=== PATIENT | female | born 2000 | race Caucasian/White ===

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

== ENCOUNTER 2018-01-25 04:37 | Inpatient (IN) | payer OTHER ==
[2018-01-25 06:05] LABS: HEMATOCRIT 36.3 % (36.0-47.0); HEMOGLOBIN 12.3 g/dl (12.0-15.5); MEAN CORPUSCULAR HEMOGLOBIN 28.8 pg (27.0-33.0); MEAN CORPUSCULAR HGB CONC 33.9 g/dl (32.0-36.5); PLATELET COUNT, AUTOMATED 228 10^3/uL (150-450); RED BLOOD COUNT 4.27 10^6/uL (4.00-5.40); WHITE BLOOD COUNT 16.4 10^3/uL (4.0-10.0)
[2018-01-25] MEDS: PENICILLIN G POTASSIUM IV 5 MU in D5W MINI-BAG PLUS 100 ML IV (06:36)
[2018-01-25] MEDS ORDERED: FENTANYL 2MCG/ML ROPIVACAINE 0.2% IN 0.9% NACL 200ML IVBAG As Ordered (08:05)
[2018-01-25] MEDS ORDERED: NALOXONE INJ 0.4 MG/1 ML VIAL (J2310) IV (10:15)
[2018-01-25] MEDS ORDERED: EPIDURAL COMMENT XX (10:15)
[2018-01-25] MEDS ORDERED: REFRIGERATOR IV KEYS XX (10:15)
[2018-01-25] MEDS ORDERED: ePHEDrine SULFATE 25 MG/5 ML(5MG/ML) SYRINGE IV (10:15)
[2018-01-25] MEDS ORDERED: LACTATED RINGER'S 1000 ML IV (10:15)
[2018-01-25] MEDS: FENTANYL/ROPIVACAINE/NACL BAG 200 ML EPIDURAL (10:15)
[2018-01-25] MEDS ORDERED: ONDANSETRON 4MG/2ML VIAL (J2405) IV ×2 (10:15→22:30)
[2018-01-25] MEDS ORDERED: EPIDURAL/PCA KEYS XX (10:15)
[2018-01-25] MEDS ORDERED: diphenhydrAMINE INJ 50MG/ML VIAL (J1200) IV (10:15)
[2018-01-25] MEDS: PENICILLIN G POTASSIUM IV 2.5 MU in APPROPRIATE DILUENT 1 EA IV ×3 (10:18→18:35)
[2018-01-25] MEDS: OXYTOCIN DRIP 30 UNITS in APPROPRIATE DILUENT 1 EA IV (12:03)
[2018-01-25] MEDS ORDERED: ACETAMINOPHEN 500 MG TAB PO (22:30)
[2018-01-25] MEDS ORDERED: DOCUSATE SODIUM 100 MG CAP PO (22:30)
[2018-01-25] MEDS ORDERED: IBUPROFEN 800 MG TAB PO (22:30)
[2018-01-25] MEDS ORDERED: METHYLERGONOVINE MALEATE 0.2 MG TAB PO (22:30)
[2018-01-25] MEDS ORDERED: DIBUCAINE 1% OINTMENT 30GM TOP (22:30)
[2018-01-26] MEDS: OXYTOCIN DRIP 30 UNITS in APPROPRIATE DILUENT 1 EA IV (00:53)
[2018-01-26] MEDS: PRENATAL VITAMINS CHEWABLE TABLET PO (08:44)
[2018-01-26] MEDS: MEASLES,MUMPS,RUBELLA VACCINE INJ (MMR-II) (90707) SC (11:17)
[2018-01-26] MEDS: RHOGAM 300 MCG (1500 IU) INJ (J2790) IM (11:17)
== END 2018-01-27 09:55 | disposition home or self-care (01) | DRG 560 ==
LOC: M LDO 04:37 → M OBS 01-26 01:05 → M LDI 05:26
PROVIDERS: Specialist
PROC: 10E0XZZ Delivery of Products of Conception, External Approach (ICD-10-PCS; principal; 2018-01-25)
PROC: 0HQ9XZZ Repair Perineum Skin, External Approach (ICD-10-PCS; 2018-01-25)
DX: O99.824 Streptococcus B carrier state complicating childbirth (principal); F17.210 Nicotine dependence, cigarettes, uncomplicated; Z3A.39 39 weeks gestation of pregnancy; Z37.0 Single live birth; O70.0 First degree perineal laceration during delivery; O99.334 Smoking (tobacco) complicating childbirth

== ENCOUNTER 2018-01-30 21:06 | Emergency (ER) | payer OTHER | END 2018-01-30 22:37 | disposition home or self-care (01) | LOC: M ED 21:06 | DX: Z11.3 Encounter for screening for infections with a predominantly sexual mode of transmission (principal); F17.210 Nicotine dependence, cigarettes, uncomplicated | CPT/HCPCS: 86694 ==

== ENCOUNTER 2018-02-19 19:45 | Emergency (ER) | payer OTHER ==
[2018-02-19 20:12] LABS: KETONE, URINE AUTO RFX NEGATIVE (NEGATIVE); LEUKOCYTE ESTERASE UR AUTO RFX TRACE (NEGATIVE); MUCUS, URINE RFX SMALL (NEGATIVE); NITRITE, URINE AUTO RFX NEGATIVE (NEGATIVE); RBC, URINE AUTO RFX 3 /HPF (0-3); SPECIFIC GRAVITY UR AUTO RFX 1.023 (1.002-1.035); SQUAM EPITHELIAL CELL UR AURFX 2 /HPF (0-6); WBC, URINE AUTO RFX 1 /HPF (0-3)
== END 2018-02-19 22:51 | disposition home or self-care (01) ==
LOC: M ED 19:45
DX: O90.89 Other complications of the puerperium, not elsewhere classified (principal); R10.2 Pelvic and perineal pain; Z87.440 Personal history of urinary (tract) infections; O99.335 Smoking (tobacco) complicating the puerperium; F17.210 Nicotine dependence, cigarettes, uncomplicated
CPT/HCPCS: 76856

== ENCOUNTER 2018-04-30 20:23 | Emergency (ER) | payer OTHER, SELFPAY ==
[2018-04-30] MEDS: AUGMENTIN 875 MG TAB PO ×2 (21:15)
== END 2018-04-30 21:34 | disposition home or self-care (01) ==
LOC: M ED 20:23
DX: H65.02 Acute serous otitis media, left ear (principal); B34.9 Viral infection, unspecified; F33.9 Major depressive disorder, recurrent, unspecified
CPT/HCPCS: 87880

== ENCOUNTER 2018-07-07 18:03 | Emergency (ER) | payer OTHER, SELFPAY ==
[~2018-07-07] VITALS: Ht 154.9 cm; Wt 79.5 kg
[~2018-07-07 18:03] MED LIST: AUGM875T28 PO; BENA25TA10 PO; CLEO300C2 PO; COLA100C5 PO; E-ZMIS3 XX; GUAI100S27 PO; HYDR1CRE2 EXT; IBUP-1114 PO; MAPA500T17 PO; PERC5TAB12 PO; PREN1TAB11 PO; PROAAER10 INH
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
[2018-07-07] MEDS ORDERED: traMADol 50 MG TAB PO ONE (19:15)
[2018-07-07] MEDS ORDERED: TETANUS/DIPHTHERIA TOX ADSORB ADULT 0.5ML SYR/VIAL (90714) IM ONE (19:15)
[2018-07-07 19:48] VITALS: BP 124/68
== END 2018-07-07 19:49 | disposition home or self-care (01) ==
LOC: EDBD 18:03 → M ED 18:03
DX: S80.02XA Contusion of left knee, initial encounter (principal); S80.212A Abrasion, left knee, initial encounter; W00.0XXA Fall on same level due to ice and snow, initial encounter; Y92.410 Unspecified street and highway as the place of occurrence of the external cause; F17.200 Nicotine dependence, unspecified, uncomplicated

== ENCOUNTER 2019-02-09 16:47 | Emergency (ER) | payer MEDICAID, SELFPAY ==
[~2019-02-09] VITALS: Ht 154.9 cm; Wt 84.5 kg
[~2019-02-09 16:47] MED LIST changes: +GUAI100L6 PO; -GUAI100S27 PO; -MAPA500T17 PO; +MAPA500T2 PO
[2019-02-09 17:48] LABS: BASO % 0.2 % (0.0-1.0); EOS % 0.3 % (0.0-3.0); HEMATOCRIT 39.1 % (36.0-47.0); HEMOGLOBIN 13.3 g/dl (12.0-15.5); LYMPH # 2.6 10^3/uL (1.5-6.5); LYMPH % 26.9 % (24.0-44.0); MEAN CORPUSCULAR HEMOGLOBIN 29.2 pg (27.0-33.0); MEAN CORPUSCULAR VOLUME 85.7 fl (80.0-96.0); MONO # 0.5 10^3/uL (0.0-0.8); MONO % 5.5 % (0.0-5.0); NEUTROPHILS # 6.5 10^3/uL (1.8-7.7); NEUTROPHILS % 66.8 % (36.0-66.0); PLATELET COUNT, AUTOMATED 208 10^3/uL (150-450); RED BLOOD COUNT 4.56 10^6/uL (4.00-5.40); WHITE BLOOD COUNT 9.7 10^3/uL (4.0-10.0)
[2019-02-09 18:21] LABS: ALBUMIN 3.9 GM/DL (3.2-5.2); ALT/SGPT 19 U/L (12-78); BILIRUBIN,DIRECT < 0.1 MG/DL (0.0-0.2); BILIRUBIN,TOTAL 0.1 MG/DL (0.2-1.0); BLOOD UREA NITROGEN 6 MG/DL (7-18); CALCIUM LEVEL 9.3 MG/DL (8.5-10.1); CARBON DIOXIDE LEVEL 26 MEQ/L (21-32); CHLORIDE LEVEL 108 MEQ/L (98-107); CREATININE FOR GFR 0.56 MG/DL (0.55-1.30); GLUCOSE, FASTING 77 MG/DL (70-100); HCG, SERUM QUANTITATIVE 21503 MIU/ML; LIPASE 83 U/L (73-393); POTASSIUM SERUM 4.1 MEQ/L (3.5-5.1); SODIUM LEVEL 140 MEQ/L (136-145); TOTAL PROTEIN 6.8 GM/DL (6.4-8.2)
[2019-02-09] MEDS ORDERED: ACETAMINOPHEN TAB 650MG DOSE (2X325MG) PO ONE (18:45)
--- NOTE | 2019-02-09 20:08 | REPVR ---
EXAM: US Duplex Artery and Vein of the Abdominal and/or Reproductive Organs. Complete Ovaries EXAM DATE/TIME: 02/09/2019 6:54 PM CLINICAL HISTORY: 18 years old, female; complicated by abdominal or pelvic pain; Generalized abdominal pain; First trimester; Gestational age or lmp: 6w; ; Additional info: Abd pain, suprapubic ttp, TECHNIQUE: Imaging protocol: Real-time duplex ultrasound scan of the arterial and venous flow with color Doppler flow and spectral waveform analysis. Complete duplex exam focused on the ovaries. Duplex exam was added to evaluate for ovarian torsion or mass. COMPARISON: US PELVIC NON-OB COMPLETE 02/19/2018 9:09 PM FINDINGS: Right adnexa: Normal arterial waveform. Normal resistive index. Venous waveform not obtained. No evidence of torsion. Left adnexa: Normal venous waveform. Arterial waveform not obtained. No evidence of torsion. IMPRESSION: No evidence of ovarian torsion. EXAM: US First Trimester, Transabdominal and US , Transvaginal EXAM DATE/TIME: 02/09/2019 6:54 PM CLINICAL HISTORY: 18 years old, female; complicated by abdominal or pelvic pain; Generalized abdominal pain; First trimester; Gestational age or lmp: 6w; ; Additional info: Abd pain, suprapubic ttp, TECHNIQUE: Imaging protocol: Real-time transabdominal obstetrical ultrasound of the maternal pelvis and a first trimester , less than 14 weeks 0 days, with image documentation. Transvaginal imaging was used for better evaluation of the fetus and adnexa. COMPARISON: US PELVIC NON-OB COMPLETE 02/19/2018 9:09 PM FINDINGS: GESTATION: Gestation: Single intrauterine gestational sac. No pole seen. Yolk sac is not visible. Heart rate: Not applicable. Placenta: Hypoechoic subchorionic hemorrhage measuring 15 x 8 x 17 mm. Amniotic fluid: Amniotic and chorionic fluid are normal for gestational age. BIOMETRY: Estimated gestational age: 6 weeks, 3 days. Mean sac diameter: 13.1 mm. MATERNAL: Uterus: Unremarkable. Cervix: Unremarkable. Right adnexa: Hypoechoic 1.7 cm right ovarian follicle with some internal echoes and some peripheral blood flow, probably either a corpus luteum cyst or hemorrhagic cyst. Left adnexa: Anechoic left ovarian follicle. Intraperitoneal: No intraperitoneal free fluid. IMPRESSION: 1. Single intrauterine gestational sac with estimated gestational age of 6 weeks, 3 days. pole not seen. Consider followup ultrasound in 7-10 days. 2. Subchorionic hemorrhage. Followup recommended. Electronically signed by: Dio Mari On 02/09/2019 20:08:38 PM
[2019-02-09 21:37] VITALS: BP 108/68
== END 2019-02-09 21:38 | disposition home or self-care (01) ==
LOC: M ED 16:47
DX: Z32.01 Encounter for pregnancy test, result positive (principal); O36.8910 Maternal care for other specified fetal problems, first trimester, not applicable or unspecified; R51 Headache; Z3A.01 Less than 8 weeks gestation of pregnancy; O99.331 Smoking (tobacco) complicating pregnancy, first trimester; F17.210 Nicotine dependence, cigarettes, uncomplicated

== ENCOUNTER → 2019-08-04 | Outpatient (CLI) | payer MEDICAID | LOC: M LAB 09:09 | DX: Z3A.27 27 weeks gestation of pregnancy (principal) ==

== ENCOUNTER → 2019-08-06 | Outpatient (REF) | payer OTHER | LOC: M LAB REF 12:37 | PROVIDERS: ATTEND Physician Assistant | DX: J02.9 Acute pharyngitis, unspecified (principal) ==

== ENCOUNTER → 2020-02-02 | Outpatient (REF) | payer OTHER ==
[~2020-02-02] MED LIST changes: +FLAG250T PO; +MACR100C43 PO
== END ==
LOC: M LAB REF 17:10
PROVIDERS: ATTEND Physician Assistant
DX: J02.9 Acute pharyngitis, unspecified (principal)

== ENCOUNTER 2020-03-27 13:30 | Emergency (ER) | payer OTHER ==
[~2020-03-27] VITALS: Ht 154.9 cm; Wt 83.9 kg
[~2020-03-27 13:30] MED LIST changes: -FLAG250T PO; -MACR100C43 PO
[2020-03-27 14:41] LABS: HEMOGLOBIN 12.7 g/dl (12.0-15.5); MEAN CORPUSCULAR HEMOGLOBIN 28.2 pg (27.0-33.0); MEAN CORPUSCULAR HGB CONC 33.4 g/dl (32.0-36.5); MEAN CORPUSCULAR VOLUME 84.4 fl (80.0-96.0); PLATELET COUNT, AUTOMATED 221 10^3/uL (150-450); WHITE BLOOD COUNT 8.3 10^3/uL (4.0-10.0)
[2020-03-27 15:22] LABS: BLOOD UREA NITROGEN 9 MG/DL (7-18); CALCIUM LEVEL 9.3 MG/DL (8.5-10.1); CARBON DIOXIDE LEVEL 23 MEQ/L (21-32); CHLORIDE LEVEL 107 MEQ/L (98-107); CREATININE FOR GFR 0.65 MG/DL (0.55-1.30); GLOMERULAR FILTRATION RATE > 60.0 (>60); GLUCOSE, FASTING 87 MG/DL (70-100); HCG, SERUM QUANTITATIVE 29255 MIU/ML; POTASSIUM SERUM 4.2 MEQ/L (3.5-5.1); SODIUM LEVEL 138 MEQ/L (136-145)
--- NOTE | 2020-03-27 16:20 | REPVR ---
PROCEDURE INFORMATION: Exam: US First Trimester, Transabdominal Exam date and time: 03/27/2020 3:54 PM Age: 19 years old Clinical indication: Lmp or gestational age (in weeks): 01/31/2020; Antepartum complications; Bleeding; ; Additional info: Vaginal bleeding in . Spotting x 4 days TECHNIQUE: Imaging protocol: Real-time transabdominal obstetrical ultrasound of the maternal pelvis and a first trimester , less than 14 weeks 0 days, with image documentation. COMPARISON: No relevant prior studies available. FINDINGS: Gestation: There is a single intrauterine gestational sac. Yolk sac is present. Embryonic/ heart rate: cardiac activity noted at a rate of 135 bpm. Placenta: There is a subchorionic fluid collection noted posteriorly measuring 1 x 0.8 by 1.2 centimetres. Amniotic fluid: Amniotic fluid is normal for gestational age. anatomy: The bladder is poorly distended which limits visualization of the uterus and the adnexa. BIOMETRY: [place]-Rump length: There is a pole with a crown-rump length measurement of 6.33 mm for a menstrual age of 6 weeks and 4 days. MATERNAL: Uterus: Unremarkable. Cervix: Not optimally seen. The visualized portion is unremarkable.. Right adnexa: Transabdominally, the right ovary measures 2.5 by 2.5 x 2 cm. Blood flow demonstrated in the right ovary on color Doppler and pulse Doppler examination. Left adnexa: Left ovary measures 2.2 x 1.3 by 1.6 cm. Arterial and venous blood flow demonstrated in the left ovary on color Doppler and pulse Doppler examination. Intraperitoneal space: No intraperitoneal free fluid. IMPRESSION: 1. Single live intrauterine with an estimated menstrual age of 6 weeks and 4 days. Expected date of delivery 11/16/2020. 2. Small subchorionic fluid collection. Electronically signed by: Juana Willingham On 03/27/2020 16:20:23 PM
[2020-03-27 17:02] LABS: AMORPHOUS SEDIMENT SMALL (NEGATIVE); APPEARANCE, URINE CLOUDY (CLEAR); BACTERIA, URINE AUTO NEGATIVE (NEGATIVE); BILIRUBIN, URINE AUTO NEGATIVE (NEGATIVE); BLOOD, URINE BLOOD NEGATIVE (NEGATIVE); COLOR, URINE YELLOW (YELLOW); GLUCOSE, URINE (UA) AUTO NEGATIVE (NEGATIVE); KETONE, URINE AUTO NEGATIVE (NEGATIVE); LEUKOCYTE ESTERASE, URINE AUTO NEGATIVE (NEGATIVE); MUCUS, URINE SMALL (NEGATIVE); NITRITE, URINE AUTO NEGATIVE (NEGATIVE); PROTEIN, URINE AUTO NEGATIVE (NEGATIVE); RBC, URINE AUTO 1 /HPF (0-3); SPECIFIC GRAVITY URINE AUTO 1.012 (1.002-1.035); SQUAMOUS EPITHELIAL CELL UR AU 1 /HPF (0-6); UROBILINOGEN, URINE AUTO 0.2 mg/dL (0.0-2.0); WBC, URINE AUTO 0 /HPF (0-3)
[2020-03-27 17:22] LABS: CHLAMYDIA DNA AMPLIFICATION NEGATIVE (NEGATIVE); GC DNA AMPLIFICATION NEGATIVE (NEGATIVE)
[2020-03-27 17:55] VITALS: BP 128/68
[2020-03-30] MEDS ORDERED: FLAG250T PO (08:40)
[2020-03-30] MEDS ORDERED: MACR100C43 PO (08:40)
== END 2020-03-27 18:03 | disposition home or self-care (01) ==
LOC: M ED 13:30
DX: O26.851 Spotting complicating pregnancy, first trimester (principal); O99.331 Smoking (tobacco) complicating pregnancy, first trimester; F17.210 Nicotine dependence, cigarettes, uncomplicated; Z3A.01 Less than 8 weeks gestation of pregnancy; Z86.19 Personal history of other infectious and parasitic diseases; Z80.41 Family history of malignant neoplasm of ovary

== ENCOUNTER → 2020-07-28 | Outpatient (CLI) | payer SELFPAY ==
[~2020-07-28] MED LIST changes: +FLAG250T PO; +MACR100C43 PO
== END ==
LOC: M LABSMTC 12:00
PROVIDERS: ATTEND Pediatrics
DX: Z20.822 Contact with and (suspected) exposure to COVID-19 (principal)

== ENCOUNTER → 2020-09-13 | Outpatient (CLI) | payer OTHER ==
[2020-09-13 13:28] LABS: HEMATOCRIT 33.4 % (36.0-47.0); HEMOGLOBIN 10.7 g/dl (12.0-15.5); MEAN CORPUSCULAR HEMOGLOBIN 27.4 pg (27.0-33.0); MEAN CORPUSCULAR VOLUME 85.6 fl (80.0-96.0); PLATELET COUNT, AUTOMATED 226 10^3/uL (150-450); WHITE BLOOD COUNT 10.5 10^3/uL (4.0-10.0)
== END ==
LOC: M LAB 11:49
PROVIDERS: ATTEND Obstetrics & Gynecology
DX: Z36.89 Encounter for other specified antenatal screening (principal); Z3A.32 32 weeks gestation of pregnancy

== ENCOUNTER 2020-10-16 19:41 | Outpatient (CLI) | payer OTHER ==
[~2020-10-16] VITALS: Ht 154.9 cm; Wt 88.1 kg
[2020-10-16 20:01] VITALS: BP 128/93
[2020-10-16 20:07] VITALS: BP 126/84
[2020-10-16] MEDS ORDERED: PREN29CH2 PO (20:11)
== END 2020-10-16 20:50 | disposition home or self-care (01) ==
LOC: M LDO 19:41
PROVIDERS: ATTEND Advanced Practice Midwife
DX: O47.1 False labor at or after 37 completed weeks of gestation (principal); Z3A.37 37 weeks gestation of pregnancy; O99.213 Obesity complicating pregnancy, third trimester; E66.9 Obesity, unspecified; Z68.36 Body mass index [BMI] 36.0-36.9, adult

== ENCOUNTER 2020-12-07 13:25 | Emergency (ER) | payer OTHER ==
[~2020-12-07] VITALS: Ht 170.2 cm; Wt 80.9 kg
[~2020-12-07 13:25] MED LIST changes: +PREN29CH2 PO
[2020-12-07 14:17] LABS: APPEARANCE, URINE CLEAR (CLEAR); BACTERIA, URINE AUTO NEGATIVE (NEGATIVE); BILIRUBIN, URINE AUTO NEGATIVE (NEGATIVE); BLOOD, URINE BLOOD 3+ (NEGATIVE); COLOR, URINE YELLOW (YELLOW); GLUCOSE, URINE (UA) AUTO NEGATIVE (NEGATIVE); KETONE, URINE AUTO NEGATIVE (NEGATIVE); LEUKOCYTE ESTERASE, URINE AUTO NEGATIVE (NEGATIVE); NITRITE, URINE AUTO NEGATIVE (NEGATIVE); PROTEIN, URINE AUTO NEGATIVE (NEGATIVE); RBC, URINE AUTO TNTC /HPF (0-3); SPECIFIC GRAVITY URINE AUTO 1.013 (1.002-1.035); SQUAMOUS EPITHELIAL CELL UR AU 1 /HPF (0-6); UROBILINOGEN, URINE AUTO 0.2 mg/dL (0.0-2.0); WBC, URINE AUTO 6 /HPF (0-3)
[2020-12-07 14:37] LABS: BASO # 0.1 10^3/uL (0.0-0.2); BASO % 0.6 % (0.0-1.0); EOS # 0.1 10^3/uL (0.0-0.5); EOS % 0.6 % (0.0-3.0); HEMATOCRIT 40.2 % (36.0-47.0); LYMPH # 2.4 10^3/uL (1.5-5.0); LYMPH % 29.2 % (24.0-44.0); MEAN CORPUSCULAR HEMOGLOBIN 27.4 pg (27.0-33.0); MEAN CORPUSCULAR HGB CONC 32.3 g/dl (32.0-36.5); MEAN CORPUSCULAR VOLUME 84.6 fl (80.0-96.0); MONO # 0.6 10^3/uL (0.0-0.8); MONO % 7.3 % (2.0-8.0); NEUTROPHILS % 61.9 % (36.0-66.0); PLATELET COUNT, AUTOMATED 232 10^3/uL (150-450); RED BLOOD COUNT 4.75 10^6/uL (4.00-5.40); WHITE BLOOD COUNT 8.1 10^3/uL (4.0-10.0)
[2020-12-07 15:01] LABS: BLOOD UREA NITROGEN 9 MG/DL (7-18); CALCIUM LEVEL 9.2 MG/DL (8.5-10.1); CARBON DIOXIDE LEVEL 26 MEQ/L (21-32); CHLORIDE LEVEL 111 MEQ/L (98-107); CREATININE FOR GFR 0.69 MG/DL (0.55-1.30); GLOMERULAR FILTRATION RATE > 60.0 (>60); GLUCOSE, FASTING 77 MG/DL (70-100); POTASSIUM SERUM 4.3 MEQ/L (3.5-5.1); SODIUM LEVEL 142 MEQ/L (136-145)
--- NOTE | 2020-12-07 15:04 | REP ---
INDICATION: heavy bleeding. COMPARISON: None. TECHNIQUE: Transabdominal scanning was performed. FINDINGS: Uterine dimensions are normal at 9.4 x 4.5 x 4.0 cm. Endometrial echo is 1.3 cm thick and centrally placed. No free fluid is seen in the cul-de-sac. Visualized bladder jenkins are smooth. The right ovary has dimensions of 3.1 x 1.8 x 2.6 cm. It's Doppler flow is normal with a resistive index of 0.54. There is a 2.0 x 2.1 x 1.3 cm follicle cyst in the right ovary. The left ovary dimensions are normal as well at 3.0 x 1.5 x 1.7 cm. It's Doppler flow was normal with resistive index of 0.52. IMPRESSION: Normal pelvic sonography. <Electronically signed by Eduard Sibley > 12/07/20 [id number]
[2020-12-07 15:33] VITALS: BP 118/76
== END 2020-12-07 15:34 | disposition home or self-care (01) ==
LOC: M ED 13:25
DX: N92.0 Excessive and frequent menstruation with regular cycle (principal); F33.9 Major depressive disorder, recurrent, unspecified; F12.20 Cannabis dependence, uncomplicated; F17.210 Nicotine dependence, cigarettes, uncomplicated

== ENCOUNTER 2021-01-27 10:05 | Emergency (ER) | payer OTHER ==
[~2021-01-27] VITALS: Ht 154.9 cm; Wt 85.2 kg
[2021-01-27] MEDS ORDERED: IBUPROFEN 800 MG TAB PO ONE (11:25)
[2021-01-27] MEDS ORDERED: diazePAM 5MG TABLET PO ONE (11:25)
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
[2021-01-27] MEDS ORDERED: METH-1164 PO (12:18)
[2021-01-27 12:34] VITALS: BP 121/81
== END 2021-01-27 12:35 | disposition home or self-care (01) ==
LOC: M ED 10:05
DX: S16.1XXA Strain of muscle, fascia and tendon at neck level, initial encounter (principal); V69.59XA Passenger in heavy transport vehicle injured in collision with other motor vehicles in traffic accident, initial encounter; Y92.410 Unspecified street and highway as the place of occurrence of the external cause; F17.210 Nicotine dependence, cigarettes, uncomplicated

== ENCOUNTER 2022-04-08 13:31 | Inpatient (IN) | payer OTHER ==
[~2022-04-08] VITALS: Ht 157.5 cm; Wt 78.6 kg
[~2022-04-08 13:31] MED LIST changes: +METH-1164 PO
[2022-04-08 14:21] LABS: HEMATOCRIT 44.1 % (36.0-47.0); HEMOGLOBIN 14.7 g/dl (12.0-15.5); MEAN CORPUSCULAR HEMOGLOBIN 28.8 pg (27.0-33.0); MEAN CORPUSCULAR HGB CONC 33.3 g/dl (32.0-36.5); MEAN CORPUSCULAR VOLUME 86.3 fl (80.0-96.0); PLATELET COUNT, AUTOMATED 262 10^3/uL (150-450); RED BLOOD COUNT 5.11 10^6/uL (4.00-5.40); WHITE BLOOD COUNT 9.5 10^3/uL (4.0-10.0)
[2022-04-08 14:52] LABS: HCG, SERUM QUALITATIVE NEGATIVE (NEGATIVE)
[2022-04-08 15:07] LABS: RSV AMPLIFICATION NEGATIVE (NEGATIVE)
[2022-04-08 15:08] LABS: ACETAMINOPHEN LEVEL < 2.0 UG/ML (10.0-30.0); ALT/SGPT 29 U/L (12-78); BILIRUBIN,DIRECT 0.1 MG/DL (0.0-0.2); BILIRUBIN,TOTAL 0.4 MG/DL (0.2-1.0); BLOOD UREA NITROGEN 9 MG/DL (7-18); CARBON DIOXIDE LEVEL 24 MEQ/L (21-32); CHLORIDE LEVEL 102 MEQ/L (98-107); CREATININE FOR GFR 0.97 MG/DL (0.55-1.30); ETHYL ALCOHOL (ETHANOL) < 0.003 % (0.000-0.010); GLOMERULAR FILTRATION RATE > 60.0 (>60); GLUCOSE, FASTING 96 MG/DL (70-100); POTASSIUM SERUM 3.7 MEQ/L (3.5-5.1); SALICYLATE LEVEL 2.8 MG/DL (5.0-30.0); SODIUM LEVEL 136 MEQ/L (136-145); THYROID STIMULATING HORMONE 0.936 uIU/ML (0.358-3.740); TOTAL PROTEIN 8.3 GM/DL (6.4-8.2)
[2022-04-08 15:25] LABS: AMPHETAMINES LEVEL URINE NEGATIVE (NEGATIVE); BARBITURATES URINE NEGATIVE (NEGATIVE); BENZODIAZEPINES URINE NEGATIVE (NEGATIVE); CANNABINOIDS URINE POSITIVE (NEGATIVE); COCAINE METABOLITE URINE NEGATIVE (NEGATIVE); METHADONE URINE NEGATIVE (NEGATIVE); OPIATES URINE NEGATIVE (NEGATIVE); PHENCYCLIDINE URINE NEGATIVE (NEGATIVE)
[2022-04-08] MEDS ORDERED: NICOTINE 21MG/24HR 1 EA TRANSDERMAL TD ONE (20:15)
[2022-04-08] MEDS ORDERED: MAALOX 30 ML SUSP *UDC PO PRN (21:00)
[2022-04-08] MEDS ORDERED: MOM 30ML SUSPENSION UDC PO PRN (21:00)
[2022-04-08] MEDS ORDERED: HOME MED LIST COMPLETE! XX SCH (21:35)
[2022-04-08 22:58] VITALS: BP 117/66
[2022-04-08] MEDS: OLANZapine ORAL DISINTEGRATING TAB 5MG PO PRN (23:39)
[2022-04-08] MEDS: traZODone 50 MG TAB PO PRN (23:39)
[2022-04-08] MEDS: ACETAMINOPHEN TAB 650MG DOSE (2X325MG) PO PRN (23:39)
[2022-04-09 06:48] VITALS: BP 120/69
[2022-04-09] MEDS ORDERED: INFLUENZA QUADRIVALENT PF VACCINE 0.5ML SYRINGE IM.IMMUN ONE (09:00)
[2022-04-09] MEDS: SERTRALINE HCL 50 MG TAB PO SCH (12:14)
[2022-04-09] MEDS: ACETAMINOPHEN TAB 650MG DOSE (2X325MG) PO PRN (15:49)
[2022-04-09 16:15] VITALS: BP 115/86
[2022-04-09] MEDS: traZODone 50 MG TAB PO PRN (20:24)
[2022-04-09] MEDS: NICOTINE 21MG/24HR 1 EA TRANSDERMAL TD PRN (20:25)
[2022-04-09] MEDS: KETOROLAC TROMETHAMINE 10 MG TAB PO PRN (22:00)
[2022-04-10 06:36] VITALS: BP 140/74
[2022-04-10] MEDS: SERTRALINE HCL 50 MG TAB PO SCH (08:32)
[2022-04-10] MEDS: ACETAMINOPHEN TAB 650MG DOSE (2X325MG) PO PRN ×2 (08:33→14:44)
[2022-04-10 16:34] VITALS: BP 120/79
[2022-04-10] MEDS: traZODone 50 MG TAB PO PRN (20:51)
[2022-04-10] MEDS: KETOROLAC TROMETHAMINE 10 MG TAB PO PRN (20:52)
[2022-04-11] MEDS: SERTRALINE HCL 50 MG TAB PO SCH (08:03)
[2022-04-11 08:25] VITALS: BP 132/85
[2022-04-11] MEDS: NICOTINE 21MG/24HR 1 EA TRANSDERMAL TD PRN (08:33)
[2022-04-11] MEDS: OLANZapine ORAL DISINTEGRATING TAB 5MG PO PRN (10:36)
[2022-04-11] MEDS ORDERED: TRAZ-252 PO (11:42)
[2022-04-11] MEDS ORDERED: SERT50TA29 PO (11:42)
== END 2022-04-11 13:12 | disposition home or self-care (01) | DRG 754 ==
LOC: M ED 13:31 → EEVIPCON 13:31 → M ED INP 20:59 → M PSY 23:01
PROVIDERS: ADMIT Student in an Organized Health Care Education/Training Program; ATTEND Psychiatry & Neurology Psychiatry
DX: F32.A Depression, unspecified (principal); R45.851 Suicidal ideations; Z62.810 Personal history of physical and sexual abuse in childhood; Z62.811 Personal history of psychological abuse in childhood; Z63.0 Problems in relationship with spouse or partner; Z81.1 Family history of alcohol abuse and dependence; S62.316A Displaced fracture of base of fifth metacarpal bone, right hand, initial encounter for closed fracture; W22.8XXA Striking against or struck by other objects, initial encounter; Y92.009 Unspecified place in unspecified non-institutional (private) residence as the place of occurrence of the external cause; Y93.89 Activity, other specified; Y99.8 Other external cause status

== ENCOUNTER → 2022-07-19 | Outpatient (CLI) | payer OTHER ==
[~2022-07-19] MED LIST changes: +SERT50TA29 PO; +TRAZ-252 PO
== END ==
LOC: M WUC 15:52
PROVIDERS: ATTEND Physician Assistant
DX: M25.531 Pain in right wrist (principal)

== ENCOUNTER → 2023-03-21 | Outpatient (REF) | payer OTHER ==
[2023-03-21 16:51] LABS: APPEARANCE, URINE HAZY (CLEAR); BACTERIA, URINE AUTO 1+ (NEGATIVE); BILIRUBIN, URINE AUTO NEGATIVE (NEGATIVE); BLOOD, URINE BLOOD NEGATIVE (NEGATIVE); COLOR, URINE YELLOW (YELLOW); GLUCOSE, URINE (UA) AUTO NEGATIVE (NEGATIVE); KETONE, URINE AUTO NEGATIVE (NEGATIVE); LEUKOCYTE ESTERASE, URINE AUTO 2+ (NEGATIVE); MUCUS, URINE SMALL (NEGATIVE); NITRITE, URINE AUTO POSITIVE (NEGATIVE); PROTEIN, URINE AUTO 2+ mg/dL (NEGATIVE); RBC, URINE AUTO 11 /HPF (0-3); SPECIFIC GRAVITY URINE AUTO 1.021 (1.002-1.035); SQUAMOUS EPITHELIAL CELL UR AU 2 /HPF (0-6); UROBILINOGEN, URINE AUTO 0.2 mg/dL (0.0-2.0); WBC, URINE AUTO 61 /HPF (0-3)
[2023-03-21 16:57] LABS: URINE PREG TEST NEGATIVE (NEGATIVE)
== END ==
LOC: M LAB REF 16:07
PROVIDERS: ATTEND Physician Assistant
DX: N39.0 Urinary tract infection, site not specified (principal)

== ENCOUNTER 2023-04-17 21:02 | Emergency (ER) | payer OTHER ==
[~2023-04-17] VITALS: Ht 154.9 cm; Wt 67.0 kg
[2023-04-18 02:04] VITALS: BP 121/68; TEMP 98.1; O2SAT 100
== END 2023-04-18 02:43 | disposition left against medical advice (07) ==
LOC: M ED 21:02
DX: Z53.21 Procedure and treatment not carried out due to patient leaving prior to being seen by health care provider (principal)

== ENCOUNTER → 2023-08-01 | Outpatient (CLI) | payer OTHER ==
[2023-08-01 11:06] LABS: BASO % 0.5 % (0.0-1.0); EOS # 0.1 10^3/uL (0.0-0.5); EOS % 0.8 % (0.0-3.0); HEMATOCRIT 38.9 % (36.0-47.0); HEMOGLOBIN 12.8 g/dl (12.0-15.5); LYMPH # 1.7 10^3/uL (1.5-5.0); LYMPH % 27.6 % (24.0-44.0); MEAN CORPUSCULAR HEMOGLOBIN 28.7 pg (27.0-33.0); MEAN CORPUSCULAR HGB CONC 32.9 g/dl (32.0-36.5); MEAN CORPUSCULAR VOLUME 87.2 fl (80.0-96.0); MONO # 0.4 10^3/uL (0.0-0.8); MONO % 6.5 % (2.0-8.0); NEUTROPHILS # 3.8 10^3/uL (1.5-8.5); NEUTROPHILS % 64.3 % (36.0-66.0); PLATELET COUNT, AUTOMATED 184 10^3/uL (150-450); RED BLOOD COUNT 4.46 10^6/uL (4.00-5.40)
[2023-08-01 11:36] LABS: ALKALINE PHOSPHATASE 63 U/L (46-116); ALT/SGPT 19 U/L (7.0-40); AST/SGOT 10 U/L (<34); BILIRUBIN,TOTAL 0.4 MG/DL (0.3-1.2); BLOOD UREA NITROGEN 13 MG/DL (9-23); CALCIUM LEVEL 9.1 MG/DL (8.5-10.1); CARBON DIOXIDE LEVEL 27 MMOL/L (20-31); CHLORIDE LEVEL 108 MMOL/L (98-107); CHOLESTEROL LEVEL 142 MG/DL (<200); CHOLESTEROL RISK RATIO 2.64 (<5); CREATININE FOR GFR 0.68 MG/DL (0.55-1.30); GLOMERULAR FILTRATION RATE > 60.0 (>60); GLUCOSE, FASTING 82 MG/DL (60-100); HDL CHOLESTEROL 53.6 MG/DL (>40); LDL CHOLESTEROL 80.8 MG/DL (<100); NON-HDL-C 88.4 MG/DL; POTASSIUM SERUM 5.1 MMOL/L (3.5-5.1); SODIUM LEVEL 140 MMOL/L (136-145); TOTAL PROTEIN 6.6 G/DL (5.7-8.2); TRIGLYCERIDES LEVEL 38 MG/DL (<150)
[2023-08-01 11:38] LABS: THYROID STIMULATING HORMONE 0.924 uIU/ML (0.55-4.78)
== END ==
LOC: M EKG 10:16
PROVIDERS: ATTEND Physician Assistant
DX: R00.2 Palpitations (principal); R07.9 Chest pain, unspecified; R00.1 Bradycardia, unspecified; I49.9 Cardiac arrhythmia, unspecified

== ENCOUNTER 2023-10-24 21:47 | Emergency (ER) | payer OTHER ==
[~2023-10-24] VITALS: Ht 154.9 cm; Wt 69.7 kg
[2023-10-25 00:36] VITALS: BP 130/70; TEMP 97.4; O2SAT 100
== END 2023-10-25 01:48 | disposition left against medical advice (07) ==
LOC: M ED 21:47
DX: Z53.21 Procedure and treatment not carried out due to patient leaving prior to being seen by health care provider (principal)

== ENCOUNTER → 2024-02-04 | Outpatient (REF) | payer OTHER ==
[2024-02-04 18:39] LABS: BASO # 0.1 10^3/uL (0.0-0.2); BASO % 0.6 % (0.0-1.0); EOS # 0.1 10^3/uL (0.0-0.5); EOS % 1.4 % (0.0-3.0); HEMATOCRIT 40.3 % (36.0-47.0); HEMOGLOBIN 13.4 g/dl (12.0-15.5); LYMPH # 2.2 10^3/uL (1.5-5.0); LYMPH % 27.4 % (24.0-44.0); MEAN CORPUSCULAR HEMOGLOBIN 28.8 pg (27.0-33.0); MEAN CORPUSCULAR HGB CONC 33.3 g/dl (32.0-36.5); MEAN CORPUSCULAR VOLUME 86.5 fl (80.0-96.0); MONO # 0.5 10^3/uL (0.0-0.8); MONO % 5.6 % (2.0-8.0); NEUTROPHILS # 5.2 10^3/uL (1.5-8.5); NEUTROPHILS % 64.8 % (36.0-66.0); PLATELET COUNT, AUTOMATED 223 10^3/uL (150-450); RED BLOOD COUNT 4.66 10^6/uL (4.00-5.40); WHITE BLOOD COUNT 8.1 10^3/uL (4.0-10.0)
[2024-02-04 18:48] LABS: ERYTHROCYTE SEDIMENTATION RATE 7 mm/hr (0-20)
[2024-02-04 19:09] LABS: C REACTIVE PROTEIN QUANTITATIV < 0.40 MG/DL (<1.0)
[2024-02-04 19:11] LABS: ALBUMIN 4.5 G/DL (3.2-5.2); ALKALINE PHOSPHATASE 71 U/L (46-116); ALT/SGPT 17 U/L (7.0-40); AST/SGOT < 8 U/L (<34); BILIRUBIN,TOTAL 0.5 MG/DL (0.3-1.2); BLOOD UREA NITROGEN 14 MG/DL (9-23); CALCIUM LEVEL 9.6 MG/DL (8.5-10.1); CARBON DIOXIDE LEVEL 25 MMOL/L (20-31); CHLORIDE LEVEL 109 MMOL/L (98-107); GLOMERULAR FILTRATION RATE > 60.0 (>60); GLUCOSE, FASTING 81 MG/DL (60-100); POTASSIUM SERUM 4.4 MMOL/L (3.5-5.1); SODIUM LEVEL 137 MMOL/L (136-145)
[2024-02-04 19:13] LABS: RHEUMATOID FACTOR QUANT 7.3 IU/ML (<14)
== END ==
LOC: M LAB REF 17:07
PROVIDERS: ATTEND Physician Assistant
DX: M25.50 Pain in unspecified joint (principal); M54.2 Cervicalgia; M25.511 Pain in right shoulder; R20.2 Paresthesia of skin

== ENCOUNTER → 2024-02-04 | Outpatient (CLI) | payer OTHER | LOC: M RAD 12:00 | PROVIDERS: ATTEND Physician Assistant | DX: M25.50 Pain in unspecified joint (principal) ==

== ENCOUNTER → 2024-04-01 | Outpatient (CLI) | payer OTHER | LOC: M PLAIMG 14:55 | PROVIDERS: ATTEND Physician Assistant | DX: M25.50 Pain in unspecified joint (principal); M54.2 Cervicalgia; R20.2 Paresthesia of skin ==

== ENCOUNTER → 2024-04-05 | Outpatient (REF) | payer OTHER | LOC: M LAB REF 16:11 | PROVIDERS: ATTEND Physician Assistant | DX: F90.2 Attention-deficit hyperactivity disorder, combined type (principal) ==

== ENCOUNTER → 2024-05-24 | Outpatient (REF) | payer OTHER | LOC: M LAB REF 16:17 | PROVIDERS: ATTEND Physician Assistant | DX: J02.9 Acute pharyngitis, unspecified (principal) ==

== ENCOUNTER → 2024-06-22 | Outpatient (REF) | payer OTHER ==
[2024-06-25 14:07] LABS: HPV APTIMA Not Detected (Not Detected)
== END ==
LOC: M LAB REF 16:12
PROVIDERS: ATTEND Physician Assistant
DX: R30.0 Dysuria (principal)

== ENCOUNTER → 2024-09-13 | Outpatient (REF) | payer OTHER ==
[2024-09-13 20:47] LABS: Trichomonas vaginalis (AMP) NOT DETECTED (NEGATIVE)
[2024-09-13 21:10] LABS: GC DNA AMPLIFICATION NEGATIVE (NEGATIVE)
== END ==
LOC: M LAB REF 17:08
PROVIDERS: ATTEND Physician Assistant
DX: Z11.3 Encounter for screening for infections with a predominantly sexual mode of transmission (principal)

== ENCOUNTER → 2024-10-19 | Outpatient (REF) | payer OTHER ==
[2024-10-20 20:24] LABS: Trichomonas vaginalis (AMP) NOT DETECTED (NEGATIVE)
[2024-10-20 20:48] LABS: GC DNA AMPLIFICATION NEGATIVE (NEGATIVE)
== END ==
LOC: M LAB REF 17:13
PROVIDERS: ATTEND Physician Assistant
DX: Z11.3 Encounter for screening for infections with a predominantly sexual mode of transmission (principal)

== ENCOUNTER → 2024-11-10 | Outpatient (REF) | payer OTHER | LOC: M LAB REF 17:02 | PROVIDERS: ATTEND Physician Assistant | DX: S90.521A Blister (nonthermal), right ankle, initial encounter (principal); W18.30XA Fall on same level, unspecified, initial encounter; Y92.009 Unspecified place in unspecified non-institutional (private) residence as the place of occurrence of the external cause ==

== ENCOUNTER → 2025-03-31 | Outpatient (REF) | payer OTHER ==
[~2025-03-31] MED LIST changes: +BUSP5TA; +FAMO1TAB11; +METH27TA6; +TRAZ-257
[2025-03-31 20:13] LABS: HIV 1&2 SCREEN NEGATIVE (NEGATIVE)
[2025-03-31 20:21] LABS: HEPATITIS C VIRUS ABY INDEX < 0.02 INDEX (<0.8)
[2025-03-31 23:30] LABS: Trichomonas vaginalis (AMP) NOT DETECTED (NEGATIVE)
[2025-03-31 23:53] LABS: GC DNA AMPLIFICATION NEGATIVE (NEGATIVE)
== END ==
LOC: M LAB REF 17:14
PROVIDERS: ATTEND Student in an Organized Health Care Education/Training Program
DX: Z11.3 Encounter for screening for infections with a predominantly sexual mode of transmission (principal)

== ENCOUNTER → 2025-07-05 | Outpatient (CLI) | payer OTHER ==
[2025-07-05 11:32] LABS: APPEARANCE, URINE HAZY (CLEAR); BACTERIA, URINE AUTO NEGATIVE (NEGATIVE); BILIRUBIN, URINE AUTO NEGATIVE (NEGATIVE); BLOOD, URINE BLOOD NEGATIVE (NEGATIVE); GLUCOSE, URINE (UA) AUTO NEGATIVE (NEGATIVE); KETONE, URINE AUTO NEGATIVE (NEGATIVE); LEUKOCYTE ESTERASE, URINE AUTO NEGATIVE (NEGATIVE); MUCUS, URINE SMALL (NEGATIVE); NITRITE, URINE AUTO NEGATIVE (NEGATIVE); PROTEIN, URINE AUTO NEGATIVE (NEGATIVE); RBC, URINE AUTO 1 /HPF (0-3); SPECIFIC GRAVITY URINE AUTO 1.019 (1.002-1.035); SQUAMOUS EPITHELIAL CELL UR AU 10 /HPF (0-6); UROBILINOGEN, URINE AUTO 0.2 mg/dL (0.0-2.0); WBC, URINE AUTO 1 /HPF (0-3)
[2025-07-05 11:45] LABS: ALT/SGPT 22 U/L (7.0-40); AST/SGOT 18 U/L (<34); CALCIUM LEVEL 9.2 MG/DL (8.5-10.1); CARBON DIOXIDE LEVEL 26 MMOL/L (20-31); CHLORIDE LEVEL 108 MMOL/L (98-107); CREATININE FOR GFR 0.68 MG/DL (0.55-1.30); GLOMERULAR FILTRATION RATE > 90.0 (>60); POTASSIUM SERUM 4.6 MMOL/L (3.5-5.1); SODIUM LEVEL 140 MMOL/L (136-145)
[2025-07-05 11:48] LABS: ESTIMATED AVERAGE GLUCOSE 91.0 MG/DL (60-110)
== END ==
LOC: M LAB 10:43
PROVIDERS: ATTEND Nurse Practitioner Family
DX: L75.0 Bromhidrosis (principal); F90.2 Attention-deficit hyperactivity disorder, combined type